=== PATIENT | female | born 1945 | race Caucasian/White ===

== ENCOUNTER 2025-01-16 13:02 | Inpatient (IN) | payer OTHER, MEDICARE ==
[~2025-01-16] VITALS: Ht 157.5 cm; Wt 56.2 kg
[2025-01-16 14:08] LABS: BASOPHILS ABSOLUTE AUTO 0.11 K/mm3 (0.00-0.23); BASOPHILS PERCENT AUTO 1 % (0-2); EOSINOPHILS ABSOLUTE AUTO 0.20 K/mm3 (0.00-0.68); EOSINOPHILS PERCENT AUTO 2 % (0-6); Hematocrit 36.4 % (33.0-51.0); Hemoglobin 11.7 g/dL (11.5-16.0); IMMATURE GRAN ABSOLUTE AUTO 0.08 K/mm3 (0.00-0.10); IMMATURE GRAN PERCENT AUTO 1 % (0-1); LYMPHOCYTES ABSOLUTE AUTO 1.81 K/mm3 (0.84-5.20); LYMPHOCYTES PERCENT AUTO 17 % (21-46); MONOCYTES ABSOLUTE AUTO 1.09 K/mm3 (0.16-1.47); MONOCYTES PERCENT AUTO 10 % (4-13); Mean Corpuscular HGB Conc 32.1 g/dL (31.5-36.5); Mean Corpuscular Volume 101 fL (80-100); NEUTROPHILS ABSOLUTE AUTO 7.19 K/mm3 (1.96-9.15); NEUTROPHILS PERCENT AUTO 69 % (41-73); NRBC ABSOLUTE 0.00 K/mm3 (0.00-0.02); NRBC Auto 0.0 /100 WBC (0.0-0.2); Platelet Count 206 K/mm3 (150-400); RDW Coefficient Variation 13.0 % (11.7-14.2); RDW Standard Deviation 49.2 fL (35.1-46.3)
[2025-01-16 14:37] LABS: Alanine Aminotransfer (ALT/SGP 27.0 U/L (12-78); Albumin, Blood 3.0 g/dL (3.4-5.0); Albumin/Globulin Ratio 0.9 (0.8-1.8); Anion Gap 10.0 mmol/L (3-11); Aspartate Aminotrans (AST/SGOT 34.0 U/L (12-37); Bilirubin, Total 1.1 mg/dL (0.1-1.0); Blood Urea Nitrogen 17.0 mg/dL (8-24); CO2, Blood 23.0 mmol/L (21-32); Calcium, Blood 8.9 mg/dL (8.5-10.1); Chloride, Blood 107.0 mmol/L (98-108); Creatinine, Blood 1.11 mg/dL (0.40-1.00); Globulin, Blood 3.3 g/dL (2.2-4.0); Glucose, Blood 110.0 mg/dL (70-99); Potassium, Blood 3.9 mmol/L (3.5-5.5); Sodium, Blood 136.0 mmol/L (136-145); Total Protein, Blood 6.3 g/dL (6.4-8.2)
[2025-01-16] MEDS ORDERED: NS 1,000 ML IV SCH (15:05)
[2025-01-16] MEDS ORDERED: Ondansetron HCl 2 MG / ML 2ML Vial IV PRN (15:05)
[2025-01-16 16:35] LABS: Prothrombin Time Results 11.7 Sec (9.7-11.5)
[2025-01-16 16:38] VITALS: BP 136/64
[2025-01-16 19:31] VITALS: BP 116/68
[2025-01-17] VITALS (18 sets, daily range): BP systolic 104–169; BP diastolic 51–76
[2025-01-17] MEDS ORDERED: NS 1,000 ML IV ONE (05:20)
--- NOTE | 2025-01-17 05:24 | NUR ---
SHIFT SUMMARY NO ACUTE EVENTS OVERNIGHT. PT WITH NO URINE PRODUCED DURING SHIFT. CHARGE NURSE BLADDER SCANNED PT AND PT HAD 246mL. PROVIDER AWARE AND ORDERS OBTAINED FOR IV FLUIDS. PT NPO SINCE MIDNIGHT IN ANTICIPATION OF SURGICAL REPAIR OF LEFT HIP FRACTURE.
[2025-01-17] MEDS ORDERED: FLU VACC TS2025(65UP)/MF59C/PF 45 MCG/0.5 ML SYRINGE IM SCH (09:00)
[2025-01-17] MEDS ORDERED: FentaNYL Citrate 50 MCG/ML 2 ML Injection ONE ×2 (09:14→10:41)
[2025-01-17] MEDS ORDERED: CeFAZolin Sodium 1000 mg Vial ONE (09:18)
[2025-01-17] MEDS ORDERED: Rocuronium Bromide 10 MG/ML 5ML Injection IV ONE (09:25)
[2025-01-17] MEDS ORDERED: Bupivacaine 0.25% Epi 1:200000 30 ML Vial ONE (09:27)
[2025-01-17] MEDS ORDERED: Ondansetron HCl 2 MG / ML 2ML Vial ONE (09:31)
[2025-01-17] MEDS ORDERED: Dexamethasone Sod Phos 10 MG/ML 1ML VIAL ONE (09:31)
[2025-01-17] MEDS ORDERED: Phenylephrine HCl 100 MCG/ML-NS 10MLSYR (1MG/10ML) ONE (09:31)
[2025-01-17] MEDS ORDERED: Tranexamic Acid 100 ML IV ONE (09:34)
[2025-01-17] MEDS ORDERED: Ketorolac Tromethamine 30mg Vial ONE (09:35)
[2025-01-17] MEDS ORDERED: Ondansetron HCl 2 MG / ML 2ML Vial IV PRN (09:55)
[2025-01-17] MEDS ORDERED: FentaNYL Citrate 50 MCG/ML 2 ML Injection IV PRN ×2 (09:55→10:00)
[2025-01-17] MEDS ORDERED: HYDROmorphone HCl/Pf 1MG SYR IV PRN ×2 (10:00)
[2025-01-17] MEDS ORDERED: ePHEDrine Sulfate 50 MG/ML 1ML Injection IV PRN (10:00)
[2025-01-17] MEDS ORDERED: Albuterol 2.5 MG/3 ML VIAL INH PRN (10:00)
[2025-01-17] MEDS ORDERED: Prochlorperazine Edisylate 10 mg Vial IV PRN (10:00)
[2025-01-17] MEDS ORDERED: Sugammadex Sodium 200 MG/2ML SDV (100 MG/ML) ONE (10:01)
[2025-01-17] MEDS ORDERED: Polyethylene Glycol 3350 17 gm PO PRN (10:05)
--- NOTE | 2025-01-17 17:46 | NUR ---
SHIFT SUMMARY L HIP REPAIR COMPLETED TODAY. NO ACUTE CHANGES. POST OP VITALS STABLE. DRESSING C/D/I. A/Ox4 WITH FORGETFULNESS. PT UP TO BSC TO URINATE. URINE DARK IN COLOR WITH ODOR - UA ORDER ENTERED, STILL NEEDING TO BE COLLECTED. NS RUNNING 75 ML/HR. PAIN WELL CONTROLED PER PT, STATING PAIN IS TOLERABLE. PT CURRENTLY SITTING UP IN CHAIR EATING DINNER. CHAIR ALARM IN PLACE. CALL LIGHT IN REACH. SPOUSE SITTING AT BEDSIDE. PT APPEARS TO BE IN NO DISTRESS.
[2025-01-17 18:29] LABS: Source, Urine Clean Catch
[2025-01-17 18:32] LABS: Bilirubin, Urine Neg (Neg); Color, Urine Yellow (P-Yellow); Glucose Qualitative, Urine Neg (Neg); Ketones, Urine Neg (Neg); Leukocyte Esterase, Urine 2+ (Neg); Protein, Urine 3+ (Neg); Specific Gravity, Urine 1.025 (1.003-1.022); Urobilinogen, Urine NORM (Normal)
[2025-01-17 18:40] LABS: White Blood Cells, Urine 25-50 /hpf (0-5)
[2025-01-17 18:41] LABS: Red Blood Cells, Urine 0-2 /hpf (0-2)
[2025-01-17] MEDS ORDERED: Docusate Sodium/Senna 1 Tab PO SCH (21:00)
[2025-01-18 00:17] VITALS: BP 117/56
[2025-01-18 03:48] VITALS: BP 106/60
--- NOTE | 2025-01-18 06:43 | NUR ---
SHIFT SUMMARY NO ACUTE EVENTS OVERNIGHT. PT WITH ONE EPISODE OF MODERATE CONFUSION AFTER BEING AWOKEN ABRUPTLY. PT ABLE TO BE REORIENTED EASILY. PT VOIDED SMALL AMOUNT AND HAD POST VOID RESIDUAL OF 102mL
[2025-01-18] MEDS ORDERED: Cholecalciferol 1000 Unit Tablet (=25MCG) PO SCH (09:00)
[2025-01-18] MEDS ORDERED: Enoxaparin 40 MG/0.4 ML SYR SC SCH (10:00)
[2025-01-18 15:11] VITALS: BP 148/80
--- NOTE | 2025-01-18 17:14 | NUR ---
SHIFT SUMMARY POD 1 L HIP NAILING PT IS A/OX2. EASILY RE-ORIENTATED, ONCE ORIENTATED PT IS ABLE TO RETAIN PROVIDED INFORMATION FOR SHORT PERIOD OF TIME. FAMILY PRESENT T/O TODAY. PT IS A 1-2 X FWW TO BSC/CHAIR. PAIN MANAGED PER EMAR, PT IS TOLERATING PO INTAKE, AND VOIDING WELL. DENIES N/V. CALL LIGHT IN REACH, BED ALARM ON.
[2025-01-18 19:37] VITALS: BP 124/62
[2025-01-19 00:08] VITALS: BP 131/61
--- NOTE | 2025-01-19 05:38 | NUR ---
SHIFT SUMMARY NOC. PT POD 2 FOR LEFT HIP REPAIR. PT MEDICATED FOR PAIN WITH REPORTED RELIEF OF SX. AQUACELS C/D/I ASIDE FROM LIGHT DRIED SEROSANG DRAINAGE. PT VOIDING URINE AND STAND PIVOTS WITH FWW, TO BSC. PT CALLS OUT AND FORGETS TO USE CALL LIGHT AT TIMES, REDIRECTABLE, BED ALARM SET FOR SAFETY.
[2025-01-19 06:15] VITALS: BP 136/80
[2025-01-19 07:26] VITALS: BP 137/62
[2025-01-19] MEDS ORDERED: Ergocalciferol 50000 Intn'l Units PO SCH (12:40)
[2025-01-19] MEDS ORDERED: LOSARTAN POTAS100 M1 PO (12:47)
[2025-01-19] MEDS ORDERED: EUTHYROX75 MC1 PO (12:47)
[2025-01-19] MEDS ORDERED: METOPROLOL TART25 MG PO (12:48)
[2025-01-19] MEDS ORDERED: ATORVASTATIN CA20 MG PO (12:48)
[2025-01-19] MEDS ORDERED: EZETIMIBE10 M6 PO (12:49)
[2025-01-19] MEDS ORDERED: AMLODIPINE BESYL5 MG PO (12:49)
[2025-01-19 13:57] VITALS: BP 137/66
--- NOTE | 2025-01-19 15:22 | NUR ---
ASSUMED CARE OF PT @0700 VSS. AXO4. MEDICATED PER EMAR FOR PAIN. AMBULATING WITH STAFF ASSIST / PHYSICAL THERAPY WORKED WITH PATIENT - SNF STILL RECOMMENDED. DRESSING TO L HIP CDI WITH MINIMAL SHADOWING NOTED. IV REMOVED. FAMILY IN AND OUT OF ROOM TODAY. PLAN FOR [facility] TODAY @6695. FAMILY AND PT UPDATED. FACILITATING DC NOW AWAITING FOR TRANSPORT.
[2025-01-19 15:38] VITALS: BP 122/76
--- NOTE | 2025-01-19 16:13 | NUR ---
pt dc'd to [facility] @1610 with ambulance [facility] transport personnel family in room with dc - instructions provided. vss. no changes from assumption note - medicated once more per emar for pain prior to transport per pt request. dc'd on 2lnc, aquacel dressings cdi x2. stood and transferred to wheelchair well with assist. family in room for dc. belongings with pt/family. out of room @1610.
== END 2025-01-19 16:06 | DRG 482 ==
LOC: ER 13:02 → SURS 15:00
PROVIDERS: Emergency Medicine; Orthopaedic Surgery; ADMIT Internal Medicine
PROC: 0QS736Z Reposition Left Upper Femur with Intramedullary Internal Fixation Device, Percutaneous Approach (ICD-10-PCS; principal; 2025-01-17 08:00)
DX: S72.142A Displaced intertrochanteric fracture of left femur, initial encounter for closed fracture (principal); W01.0XXA Fall on same level from slipping, tripping and stumbling without subsequent striking against object, initial encounter; G30.9 Alzheimer's disease, unspecified; F02.80 Dementia in other diseases classified elsewhere, unspecified severity, without behavioral disturbance, psychotic disturbance, mood disturbance, and anxiety; I10 Essential (primary) hypertension; E55.9 Vitamin D deficiency, unspecified; R82.81 Pyuria; Z88.2 Allergy status to sulfonamides; Z85.51 Personal history of malignant neoplasm of bladder
CPT/HCPCS: 73502; 80053; 81001; 82306; 85025; 85610; 85730; 87077; 87086; 87186; 93005; 93010; 97110; 97110-CQ; 97116; 97116-CQ; 97161; 99285-25; A9270; C1713; J0690; J1100; J1650; J1885; J2371; J2405; J2704; J3010; J7030